=== PATIENT | female | born 1950 | race Caucasian/White ===

== ENCOUNTER → 2022-05-31 | Outpatient (CLI) | payer MEDICARE, BC ==
--- NOTE | 2022-05-31 11:17 | Diagnostic Imaging Report ---
Clinical Indication: Patient with bilateral lower abdominal pain left side more the right with intermittent nausea and constipation x1 week. Patient with history of bowel mesh and appendectomy. Exam: CT exam of the abdomen and pelvis is performed without IV or oral contrast using stone protocol. Coronal and sagittal reformatted images were created. Auto Exposure Controls were utilized during the CT exam to meet ALARA standards for radiation dose reduction. Comparisons: None. Findings: There are small parenchymal bands involving both lung bases which may represent atelectasis or scarring. There is lower lumbar spine facet arthropathy. There are degenerative spurs involving the visualized lower thoracic spine and lumbar spine. Likely 4 mm cyst involving the right lobe of liver near the dome. Otherwise liver is unremarkable. Spleen, gallbladder, adrenal glands unremarkable. Pancreas is unremarkable. Both kidneys are unremarkable with no hydronephrosis or mass. Bladder is fluid-filled and unremarkable. Uterus and adnexal structures are unremarkable. Appendectomy changes are seen. There is no intestinal obstruction. Diverticula seen involving the left descending colon region with no evidence of diverticulitis. Postop change to the mesh involving the anterior lower abdominal region seen which appears intact. There is no intra-abdominal free air or free fluid. There is no lymphadenopathy. Extra abdominal and extrapelvic soft tissue structures are unremarkable. Impression: 1: There is no CT evidence of acute abdominal or pelvic process. 2: Postop changes with appendectomy and abdominal wall mesh seen. Dictated by: Dictated on workstation # [id number]
== END ==
LOC: RAD FS 10:49
PROVIDERS: ATTEND Family Medicine
DX: R10.9 Unspecified abdominal pain (principal); Z90.49 Acquired absence of other specified parts of digestive tract
CPT/HCPCS: 74176